=== PATIENT | male | born 1965 | race Caucasian/White ===

== ENCOUNTER 2021-04-02 04:13 | Emergency (ER) | payer MEDICAID ==
[2021-04-02] MEDS ORDERED: Cyclobenzaprine 10 MG Tab PO ONE (04:38)
[2021-04-02] MEDS ORDERED: Ketorolac 30 MG/ML SDV IM ONE (04:38)
== END 2021-04-02 05:50 | disposition home or self-care (01) ==
LOC: JP.ED 04:13
DX: M54.2 Cervicalgia (principal)
CPT/HCPCS: 96372; 99283; A9270-GY; J1885